=== PATIENT | female | born 1935 | race Caucasian/White ===

== ENCOUNTER 2017-03-06 09:05 | Emergency (ER) | payer OTHER, BC ==
[~2017-03-06] VITALS: Ht 167.6 cm; Wt 72.8 kg
[~2017-03-06 09:05] MED LIST: AGGRENOX1 CAPSULE PO; ASPIR-TRIN325 M1 PO; ATROPINE 1100 DROP/5 RIGHT EYE; COMBIGAN O20 DROP/5 RIGHT EYE; CYCLOSET0.8 MG PO; LO-DOSE ASPIRIN81 M1 PO; PLAVIX75 MG PO; PROBIOTIC1 EACH PO; ZETIA10 MG PO
[2017-03-06 09:34] LABS: HEMATOCRIT 43.7 % (36.0-46.0); MCHC 35.9 G/DL (30.0-36.0); MCV 86.4 FL (83-99); MEAN PLAT.VOLUME 9.6 uM^3 (9.5-12.4); PLATELET COUNT 252 K/uL (156-360); RBC DIS.WIDTH-SD 37.8 % (39-53); RED BLOOD COUNT 5.06 M/uL (3.80-5.20); WHITE BLOOD COUNT 7.7 K/uL (4.1-10.2)
[2017-03-06 09:50] LABS: CHLORIDE 103 mEq/L (99-109); POTASSIUM 4.3 mEq/L (3.7-5.4); SODIUM 136 mEq/L (136-147)
[2017-03-06 09:52] LABS: GLUCOSE 210 mg/dL (70-99)
[2017-03-06 09:53] LABS: ANION GAP 11 MEQ/L (2-14)
[2017-03-06 09:55] LABS: GFR ESTIMATE (CALCULATED) > 59 mL/min/
[2017-03-06 09:56] LABS: UREA NITROGEN (BUN) 10 mg/dL (9-23)
[2017-03-06 11:04] VITALS: BP 173/66
== END 2017-03-06 11:04 | disposition home or self-care (01) ==
LOC: EME 09:05
DX: H43.11 Vitreous hemorrhage, right eye (principal); G45.9 Transient cerebral ischemic attack, unspecified; E11.65 Type 2 diabetes mellitus with hyperglycemia; E11.319 Type 2 diabetes mellitus with unspecified diabetic retinopathy without macular edema; Z86.73 Personal history of transient ischemic attack (TIA), and cerebral infarction without residual deficits; K21.9 Gastro-esophageal reflux disease without esophagitis; Z88.5 Allergy status to narcotic agent; Z88.8 Allergy status to other drugs, medicaments and biological substances
CPT/HCPCS: 70450; 71020; 80048; 85027; 99281; 99283

== ENCOUNTER 2017-05-06 11:53 | Emergency (ER) | payer OTHER, BC ==
[~2017-05-06] VITALS: Ht 167.6 cm; Wt 74.1 kg
[2017-05-06 14:29] LABS: HEMATOCRIT 39.3 % (36.0-46.0); HEMOGLOBIN 14.4 G/DL (11.9-15.5); MCH 31.5 PG (29.0-34.0); MCHC 36.6 G/DL (30.0-36.0); PLATELET COUNT 182 K/uL (156-360); RBC DIS.WIDTH-CV 11.9 % (11.8-14.6); RBC DIS.WIDTH-SD 37.2 % (39-53); RED BLOOD COUNT 4.57 M/uL (3.80-5.20); WHITE BLOOD COUNT 6.8 K/uL (4.1-10.2)
[2017-05-06 14:38] LABS: ALBUMIN 3.9 g/dL (3.2-4.8); CHLORIDE 104 mEq/L (99-109); SODIUM 135 mEq/L (136-147)
[2017-05-06 14:41] LABS: GLUCOSE 316 mg/dL (70-99); TOTAL PROTEIN 6.7 g/dL (6.4-8.3)
[2017-05-06 14:43] LABS: TOTAL BILIRUBIN 0.9 mg/dL (0.0-1.0)
[2017-05-06 14:44] LABS: ALKALINE PHOSPHATASE 103 IU/L (3-129); GFR ESTIMATE (CALCULATED) 57 mL/min/
[2017-05-06 14:45] LABS: UREA NITROGEN (BUN) 12 mg/dL (9-23)
[2017-05-06 14:46] LABS: AST (GOT) 15 IU/L (2-34)
[2017-05-06 14:47] LABS: ALT (GPT) 13 IU/L (3-49)
[2017-05-06 17:00] VITALS: BP 157/75
== END 2017-05-06 17:00 | disposition home or self-care (01) ==
LOC: EME 11:53
DX: E11.65 Type 2 diabetes mellitus with hyperglycemia (principal); I10 Essential (primary) hypertension; K21.9 Gastro-esophageal reflux disease without esophagitis; Z86.73 Personal history of transient ischemic attack (TIA), and cerebral infarction without residual deficits; Z88.5 Allergy status to narcotic agent; Z88.8 Allergy status to other drugs, medicaments and biological substances; Z91.041 Radiographic dye allergy status
CPT/HCPCS: 80053; 85027; 93005; 99281; 99285

== ENCOUNTER 2017-05-17 20:22 | Observation (INO) | payer OTHER, BC ==
[~2017-05-17] VITALS: Ht 167.6 cm; Wt 75.2 kg
[2017-05-17 21:03] LABS: BASOPHIL (%) 0.3 % (0-1); EOSINOPHIL (%) 1.1 % (0-5); EOSINOPHIL COUNT 0.1 K/uL (0-0.3); HEMOGLOBIN 14.5 G/DL (11.9-15.5); IMMATURE GRANULOCYTE (%) 0.5 % (0.0-0.7); LYMPHOCYTE (%) 23.8 % (15-42); LYMPHOCYTE COUNT 1.6 K/uL (1.0-2.8); MCH 30.9 PG (29.0-34.0); MCHC 36.3 G/DL (30.0-36.0); MCV 85.3 FL (83-99); MONOCYTE (%) 7.1 % (3-12); MONOCYTE COUNT 0.5 K/uL (0-0.8); NEUTROPHIL (%) 67.2 % (45-76); NEUTROPHIL COUNT 4.4 K/uL (1.8-6.4); PLATELET COUNT 198 K/uL (156-360); RED BLOOD COUNT 4.69 M/uL (3.80-5.20); WHITE BLOOD COUNT 6.5 K/uL (4.1-10.2)
[2017-05-17 21:13] LABS: AMYLASE 54 IU/L (1-118); CHLORIDE 104 mEq/L (99-109); POTASSIUM 4.1 mEq/L (3.7-5.4); PTT 45.7 SEC (25-37); SODIUM 137 mEq/L (136-147)
[2017-05-17 21:14] LABS: GLUCOSE 180 mg/dL (70-99)
[2017-05-17 21:18] LABS: CREATININE 0.9 mg/dL (0.6-1.3); GFR ESTIMATE (CALCULATED) > 59 mL/min/; SERUM ETHYL ALCOHOL < 10 mg/dL
[2017-05-17 21:19] LABS: UREA NITROGEN (BUN) 15 mg/dL (9-23)
[2017-05-17 21:21] LABS: LIPASE 19 U/L (1.0-51.0)
[2017-05-17 21:24] LABS: TROP-I INTERPRETATION NEGATIVE; TROPONIN-I < 0.01 ng/mL (0.0-0.30)
[2017-05-17] MEDS ORDERED: CLONIDINE HCL0.1 MG PO (22:47)
[2017-05-17] MEDS ORDERED: GLIMEPIRIDE1 MG PO (22:48)
[2017-05-17] MEDS ORDERED: ESCITALOPRAM OX10 MG PO (22:49)
[2017-05-17] MEDS ORDERED: VITAMIN D-32000 UNI2 PO (23:07)
[2017-05-17] MEDS ORDERED: MAGNESIUM200 MG PO (23:08)
[2017-05-17] MEDS ORDERED: CINNAMON500 MG PO (23:09)
[2017-05-17 23:48] LABS: HDL CHOLESTEROL 31 MG/DL (Desirable>=50); LDL CHOLESTEROL 119 mg/dL (Desirable<100); NON-HDL CHOLESTEROL 179 mg/dL (Desirable<160); TOTAL CHOLESTEROL 210 mg/dL (Desirable<200); TRIGLYCERIDES 298 MG/DL (Normal: <150)
[2017-05-18 10:38] LABS: HEMOGLOBIN A1c (GLYCOHEMOGLOB) 8.6 % (Below 5.7)
[2017-05-18 14:34] VITALS: BP 137/63
[2017-05-18 19:38] VITALS: BP 149/69
[2017-05-18 23:16] VITALS: BP 128/64
[2017-05-19 04:06] VITALS: BP 135/62
[2017-05-19 07:49] VITALS: BP 129/63
[2017-05-19 08:02] LABS: APPEARANCE CLEAR ((CLEAR)); BILIRUBIN NEGATIVE; BLOOD NEGATIVE; COLOR YELLOW ((YELLOW)); GLUCOSE (STRIP) NEGATIVE; KETONES NEGATIVE; LEUKOCYTES NEGATIVE; NITRITE NEGATIVE; PROTEIN (STRIP) NEGATIVE; SPECIFIC GRAVITY 1.011 (1.000-1.030); UROBILINOGEN 0.2 MG/DL (0.2-1.0)
[2017-05-19] MEDS ORDERED: DIPYRIDAMOLE50 MG PO (10:05)
[2017-05-19] MEDS ORDERED: COREG3.125 M1 PO (10:05)
== END 2017-05-19 11:58 | disposition home or self-care (01) ==
LOC: EME 20:22 → EDOF 22:53 → ENRESERV 22:54 → 5WEST 05-18 14:23
PROVIDERS: Emergency Medicine; Hospitalist; Internal Medicine; Physician Assistant
DX: G45.9 Transient cerebral ischemic attack, unspecified (principal); I10 Essential (primary) hypertension; H43.11 Vitreous hemorrhage, right eye; I65.23 Occlusion and stenosis of bilateral carotid arteries; E11.9 Type 2 diabetes mellitus without complications; Z86.73 Personal history of transient ischemic attack (TIA), and cerebral infarction without residual deficits; E78.5 Hyperlipidemia, unspecified; Z82.49 Family history of ischemic heart disease and other diseases of the circulatory system; Z83.79 Family history of other diseases of the digestive system; Z88.5 Allergy status to narcotic agent; Z91.041 Radiographic dye allergy status; Z88.8 Allergy status to other drugs, medicaments and biological substances
CPT/HCPCS: 70450; 70551; 80048; 80061; 81003; 82150; 82948; 83036; 83690; 84484; 85025; 85610; 85730; 86850; 86900; 86901; 93005; 93880; 99281; 99285; G0378; G0480; J1815

== ENCOUNTER 2017-08-14 17:00 | Emergency (ER) | payer OTHER, BC ==
[~2017-08-14] VITALS: Ht 167.6 cm; Wt 75.8 kg
[~2017-08-14 17:00] MED LIST changes: +CINNAMON500 MG PO; +CLONIDINE HCL0.1 MG PO; +COREG3.125 M1 PO; +DIPYRIDAMOLE50 MG PO; +ESCITALOPRAM OX10 MG PO; +GLIMEPIRIDE1 MG PO; +MAGNESIUM200 MG PO; +VITAMIN D-32000 UNI2 PO
[2017-08-14 21:36] VITALS: BP 175/124
== END 2017-08-14 21:37 | disposition home or self-care (01) ==
LOC: EME 17:00
DX: S90.01XA Contusion of right ankle, initial encounter (principal); S16.1XXA Strain of muscle, fascia and tendon at neck level, initial encounter; R51 Headache; V49.40XA Driver injured in collision with unspecified motor vehicles in traffic accident, initial encounter; Y92.410 Unspecified street and highway as the place of occurrence of the external cause; Z86.73 Personal history of transient ischemic attack (TIA), and cerebral infarction without residual deficits; Z88.5 Allergy status to narcotic agent; Z88.8 Allergy status to other drugs, medicaments and biological substances
CPT/HCPCS: 70450; 72125; 73610; 99281; 99283